=== PATIENT | female | born 1995 | race African-American/Black ===

== ENCOUNTER → 2018-01-27 15:27 | Outpatient (CLI) | payer OTHER ==
[~2018-01-27 15:27] MED LIST: IBUPROFEN600 MG PO; ZANTAC300 MG PO
[2018-01-30 05:07] VITALS: BMI 23.1
== END | disposition home or self-care (01) ==
LOC: D.LDO 15:27
DX: O26.893 Other specified pregnancy related conditions, third trimester (principal); Z3A.37 37 weeks gestation of pregnancy

== ENCOUNTER 2018-01-30 04:10 | Inpatient (IN) | payer OTHER ==
[~2018-01-30] VITALS: Ht 165.1 cm; Wt 63.2 kg
--- NOTE | ~2018-01-30 | DS ---
PATIENT:JUNG TOPETE :89 MEDICAL RECORD: [id number] DISCHARGE SUMMARY ADMISSION DATE: 01/30/18 DISCHARGE DATE: 01/31/18 DATE OF ADMISSION: 01/30/2018 DATE OF DISCHARGE: 01/31/2018 ADMISSION DIAGNOSIS: at term, in active labor. DISCHARGE DIAGNOSIS: Mother delivered at term. PROCEDURE: Vaginal delivery. ATTENDING: Crystal Nick MD HISTORY OF PRESENT ILLNESS: See the H&P in the chart. SUMMARY OF HOSPITALIZATION: The patient was admitted to the hospital and delivered vaginally. The patient did have retained placenta and a manual extraction. Precautions especially have been given to the patient with stresses on fever and abdominal pain. The patient will follow up in 6 weeks. Ibuprofen 800 mg every 8 hours p.r.n. for [id number] pain has been prescribed. TRANSINT:[id number] Voice Confirmation ID: [id number] DOCUMENT ID: [id number] CRYSTAL NICK MD at 1615 CC: [id number] DICTATION DATE: 01/31/18 0904 SHOP FIRER/FIREMAN: 01/31/18 0912 DIS IN 01/31/18 [place] [id number] [place] [id number]
--- NOTE | ~2018-01-30 | OP ---
PATIENT NAME: JUNG TOPETE MEDICAL RECORD: [id number] :[birth year] LOCATION:[id number] ADMISSION DATE:01/30/18 SURGEON: CRYSTAL NICK MD DATE OF OPERATION: 01/30/2018 PREDELIVERY DIAGNOSIS: Active labor at term. POSTDELIVERY DIAGNOSES: 1. Mother delivered at term. 2. Retained placenta. 3. hemorrhage. PROCEDURES: 1. Spontaneous vaginal . 2. Manual extraction of the placenta. ATTENDING: Crystal Nick MD ANESTHETIC: Postdelivery, conscious sedation with anesthesia in attendance. FINDINGS: Viable , vertex presentation, Apgars 9 and 9, weight 6 pounds 11 ounces. First-degree laceration of the perineal body without repair. Placenta retained. After verbal consent given, the patient received Diprivan and pain medication to allow manual extraction of the placenta. Placenta was removed in 3 separate segments, all sent to pathology. EBL: 550-600 cc. DISPOSITION: Mother and infant are recovered in the room. TRANSINT:[id number] Voice Confirmation ID: [id number] DOCUMENT ID: [id number] CRYSTAL NICK MD at 0902 CC: [id number] DICTATION DATE: 01/30/18717 EYE CARE PROFESSIONAL: 01/30/18726 ADM IN [place] [id number] [place] [address]
[2018-01-30 04:30] LABS: HEMATOCRIT 31.4 % (36.0-48.0); HEMOGLOBIN 10.2 g/dL (12-16); MCH 27.3 pg (26.0-34.0); MCHC 32.5 g/dL (31.0-37.0); MCV 84.2 fL (80.0-100.0); MEAN PLATELET VOLUME 12.8 fL (7.4-10.4); RBC 3.73 10x6/uL (4.00-5.40); RDW 14.3 % (11.5-14.5); WBC 13.2 10x3/uL (4.8-10.8)
[2018-01-30] MEDS ORDERED: ZANTAC300 MG PO (04:55)
[2018-01-30 05:07] VITALS: BP 131/85; Ht 165.1 cm; Wt 63.2 kg
[2018-01-30 13:48] VITALS: BP 125/74
[2018-01-30 21:00] VITALS: BP 125/74
[2018-01-31 07:30] VITALS: BP 104/74
[2018-01-31 07:34] LABS: RAPID PLASMA REAGIN Non Reactive (Non Reactive)
[2018-01-31] MEDS ORDERED: IBUPROFEN600 MG PO (09:34)
== END 2018-01-31 13:46 | disposition home or self-care (01) | DRG 807 ==
LOC: D.LD 04:10 → D.WS 19:16
PROVIDERS: Obstetrics & Gynecology
PROC: 10E0XZZ Delivery of Products of Conception, External Approach (ICD-10-PCS; principal; 2018-01-30)
PROC: 10D17Z9 Manual Extraction of Products of Conception, Retained, Via Natural or Artificial Opening (ICD-10-PCS; 2018-01-30)
DX: O72.2 Delayed and secondary postpartum hemorrhage (principal); Z37.0 Single live birth; O70.0 First degree perineal laceration during delivery